=== PATIENT | male | born 2000 | race African-American/Black ===

== ENCOUNTER 2022-12-18 18:56 | Emergency (ER) | payer BC, OTHER, SELFPAY ==
[2022-12-18 18:59] VITALS: BP 118/67; PULSE 78; RESP 16; TEMP 36.9; O2SAT 98; BMI 23.0
[2022-12-18 19:07] VITALS: O2SAT 98
--- NOTE | 2022-12-18 19:15 | ED.GENADUL1 ---
HPI - General Adult General Chief complaint: Skin/Abscess/Foreign Body Stated complaint: BEE BITE SWELLING LEG Time Seen by Provider: 12/18/22 19:04 Source: patient Mode of arrival: walk-in History of Present Illness HPI narrative: patient stung by a bee yesterday on the left calf. He developed redness swelling and itching to the area. It is slightly painful. he has not applied ice to the area or taken any benadryl. He denies any systemic symptoms such as fever or vomiting. no throat or tongue swelling or trouble breathing. No additional areas of swelling or rash He previously was diagnosed with left LE DVT and wondered if this was a blood clot. Related Data Previous Rx's Medication Instructions Recorded cephalexin 500 mg capsule 500 mg PO QID #28 caps 12/18/22 diphenhydramine HCl 25 mg capsule 25 mg PO Q6H PRN swelling #30 caps 12/18/22 (Allergy Relief (diphenhydramine)) Allergies Allergy/AdvReac Type Severity Reaction Status Date / Time aspirin Allergy Severe Verified 12/18/22 19:03 Penicillins Allergy Severe Verified 12/18/22 19:03 peanut butter Allergy Severe Uncoded 12/18/22 19:03 Exam Narrative Exam Narrative: Nurses notes and vital signs reviewed and patient is not hypoxic. afebrile General: Well-appearing and in no apparent distress. Skin: Warm, dry, no pallor noted. Localized histamine-type reasction to the medial and proximal left calf but no aditional rash. Head: Normocephalic, atraumatic. Eye: Pupils are equal, round and EOMI. No scleral icterus. Ears, Nose, Mouth, and Throat: Oral mucosa is moist, no posterior oropharynx erythema or swelling, uvula is mid-line, no tongue swelling Cardiovascular: Regular Rate and Rhythm without murmur, gallop or rub. Respiratory: No accessory muscle use or respiratory distress. Lungs are clear to auscultation, no wheezing, rales or rhonchi Musculoskeletal: LEFT LE - medial proximal calf tenderness with swelling and slight warmth. No foreign body detected on touch or visualization. Left hip, knee, foot and ankle with normal ROM. No thigh, popliteal or posterior calf tenderness, Rohith's negative. No lower extremity edema/swelling distal to the left calf. GI: Abdomen is soft, non-distended. Normal bowel sounds. No tenderness to palpation. No rebound, guarding, or rigidity noted. Neurological: A&O x4. No cranial nerve dysfunction observed. No truncal ataxia. Moves all extremities. Sensation intact. Psychiatric: Cooperative and interactive. Normal mood and affect. Constitutional Vital Signs, click to edit/add: Last Vital Signs Temp 98.5 F 12/18/22 18:59 Pulse 78 12/18/22 18:59 Resp 16 12/18/22 18:59 BP 118/67 12/18/22 18:59 Pulse Ox 98 12/18/22 19:07 O2 Del Method Room Air 12/18/22 19:07 Course Vital Signs Vital signs: Vital Signs Temperature 98.5 F 12/18/22 18:59 Pulse Rate 78 12/18/22 18:59 Respiratory Rate 16 12/18/22 18:59 Blood Pressure 118/67 12/18/22 18:59 Pulse Oximetry 98 12/18/22 18:59 Oxygen Delivery Method Room Air 12/18/22 18:59 Temperature 98.5 F 12/18/22 18:59 Pulse Rate 78 12/18/22 18:59 Respiratory Rate 16 12/18/22 18:59 Blood Pressure 118/67 12/18/22 18:59 Pulse Oximetry 98 12/18/22 19:07 Oxygen Delivery Method Room Air 12/18/22 19:07 Medical Decision Making MDM Narrative Medical decision making narrative: Exam consistent with histamine-mediated inflammatory reaction from the bee sting. However I cannot rule out underlying cellulitis. Patient instructed to apply ice to the affected area and take benadryl to help with inflammation and swelling and Keflex to cover any potential soft tissue infection. Patient given reassurance that this is related to the bee sting and is not a DVT. Discharge Plan Discharge Chief Complaint: Skin/Abscess/Foreign Body Clinical Impression: Bee sting reaction Patient Disposition: Home, Self-Care Time of Disposition Decision: 19:13 Prescriptions / Home Meds: New cephalexin 500 mg capsule 500 mg PO QID Qty: 28 0RF diphenhydramine HCl [Allergy Relief(diphenhydramin)] 25 mg capsule 25 mg PO Q6H PRN (Reason: swelling) Qty: 30 0RF Instructions: Insect Bite or Sting (ED) Stand Alone Forms: Portal Instructions Referrals: Physician,Non-Staff, MD [Primary Care Provider] - 1 week
== END 2022-12-18 19:20 | disposition home or self-care (01) ==
PROVIDERS: Emergency Provider Emergency Medicine
DX: T63.441A Toxic effect of venom of bees, accidental (unintentional), initial encounter (principal); Z86.718 Personal history of other venous thrombosis and embolism
CPT/HCPCS: 99283